=== PATIENT | male | born 1995 | race Hispanic/Latino ===

== ENCOUNTER 2023-02-15 12:21 | Emergency (ER) | payer OTHER, SELFPAY ==
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
[2023-02-15 12:46] VITALS: BP 129/86; PULSE 79; RESP 18; TEMP 36.1; O2SAT 96
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
== END 2023-02-15 15:05 | disposition home or self-care (01) ==
PROVIDERS: Emergency Provider Physician Assistant
DX: S09.90XA Unspecified injury of head, initial encounter (principal); S16.1XXA Strain of muscle, fascia and tendon at neck level, initial encounter; S39.012A Strain of muscle, fascia and tendon of lower back, initial encounter; M43.06 Spondylolysis, lumbar region; V49.50XA Passenger injured in collision with unspecified motor vehicles in traffic accident, initial encounter
CPT/HCPCS: 70450; 72100; 72125; 99284